=== PATIENT | male | born 1960 | race Caucasian/White ===

== ENCOUNTER 2018-10-14 13:22 | Emergency (ER) | payer BC, SELFPAY ==
[2018-10-14 13:23] VITALS: BP 125/71; PULSE 58; RESP 18; TEMP 36.5; O2SAT 97; BMI 31.0
--- NOTE | 2018-10-14 15:04 | ED.VISSUMM ---
- ER Visit Summary Date of Service: 10/14/18 Chief Complaint: Testicular pain History of Present Illness: The patient is a 58 M with left-sided testicular pain for 3 days. The patient was at an outside emergency department yesterday. Ultrasound was done and showed low flow. There was concern for torsion/detorsion. Urology was contacted. They did not believe this was torsion and they recommended outpatient follow-up. Patient has had continued pain. He called [facility] today for a second opinion and was referred to the emergency department. Physical Examination: Vital signs unremarkable. inspection normal. There is some tenderness to his left epididymis. Normal lie. Otherwise exam unremarkable. Test Results: None performed Emergency Department Course and Treatment: I reviewed the patient's outside facility ultrasound and urinalysis. I spoke with Dr. Wilks. Clinically, this does not appear to be torsion. He examined the patient. He was concerned for epididymitis. Patient was started on Cipro. He has a prescription for pain medicine. He will follow-up as an outpatient. Treatment Plan: As above Disposition: Discharge Impression: 1. Left testicle pain This note was generated with [employer] dictation software. It may contain incorrect words, spelling, and punctuation that were not noted in review of the chart prior to signing ED Disposition - Plan for ED Patient: Referrals: Alf Winters MD [Primary Care Provider] -
--- NOTE | 2018-10-14 15:06 | ED.DEP ---
ED Disposition - Plan for ED Patient: Instructions: ED Epididymitis Prescriptions: Ciprofloxacin [Cipro] 500 mg PO BID 10 Days #20 tab Referrals: Jose Wilks MD [STAFF PHYSICIAN] -
[2018-10-14] MEDS: Ciprofloxacin 500 MG Tablet PO (15:18)
[2018-10-14] MEDS: HYDROcodone Bitartrate/Apap 5/325 Tablet PO (15:18)
== END 2018-10-14 15:36 | disposition home or self-care (01) ==
PROVIDERS: Emergency Provider Emergency Medicine
DX: N50.812 Left testicular pain (principal); Z72.0 Tobacco use
CPT/HCPCS: 99283

== ENCOUNTER 2021-04-08 11:32 | Emergency (ER) | payer MEDICAID, SELFPAY ==
[2021-04-08 11:33] VITALS: BP 107/76; PULSE 59; RESP 18; TEMP 36.4; O2SAT 96; BMI 34.4
[2021-04-08 11:34] VITALS: BP 107/76; PULSE 59; RESP 18; TEMP 36.4; O2SAT 96
[2021-04-08 12:43] VITALS: O2SAT 97
--- NOTE | 2021-04-08 12:52 | EDS_ITS ---
HPI History of Present Illness Chief Complaint: Shortness of Breath Narrative Narrative: Patient presents with dyspnea for 2 days, no fevers or chills he does have a history of bronchitis. He tells me he was at [facility] in the past and has had some sort of bronchial stent in the past. He does not know his actual diagnosis. He is denying fevers or chills. No cough or congestion. He has a cough with clear sputum. He has no chest pain. No neck pain or stiffness. PFSH PFSH Home Medications albuterol sulfate 2.5 mg INHALATION Q20M #30 ea 04/08/21 [Rx Last Taken Unknown] azithromycin See Rx Instructions .ROUTE .COMPLEX #4 tab 04/08/21 [Rx Last Taken Unknown] prednisone 50 mg PO DAILY #4 tab 04/08/21 [Rx Last Taken Unknown] Allergy/AdvReac Type Severity Reaction Status Date / Time pregabalin [From Lyrica] Allergy Shortness Verified 04/08/21 11:34 of breath morphine AdvReac Nausea Verified 04/08/21 11:34 Surgical History (Updated 04/08/21 @ 12:43 by Pamela Moreira) Stented coronary artery Social History Smoking Status: Current every day smoker tobacco type: cigarettes ROS ROS ED ROS Narrative Past medical history: Reviewed Medications: Reviewed Social history: Noncontributory Vaccination: He is not vaccinated for Covid. Review of systems: All systems negative except as indicated General: No fever Eyes: No visual changes ENT: No upper airway congestion, normal voice Neck: No neck pain Cardiovascular: No chest pain Respiratory: Shortness of breath as in HPI Gastrointestinal: No abdominal pain, nausea vomiting or diarrhea Genitourinary: No dysuria Musculoskeletal: Denies myalgias no difficulty with ambulation Skin: No rash Neurological: No memory loss, confusion or any focal weakness Psych: No recent behavioral changes Hematologic: No easy bleeding or easy bruising EXAM Physical Exam Narrative Exam Narrative: Physical exam General: Well nourished, Well developed, No Acute Distress. He is quite comfortable in bed. Head: Normocephalic, Atraumatic Eyes: Conjunctiva not pale ENT: Moist mucous membranes Neck: Supple, Nontender, No lymphadenopathy Cardiovascular: Regular rate, Regular rhythm Respiratory: He is speaking full sentences, he has coarse bilateral breath sounds with bilateral wheezing. I ambulated him around the room and he did not desaturate. Abdomen: Soft, Nontender, Nondistended Back: Nontender, Normal Inspection. Negative for: CVA tenderness Extremities: Nontender, No edema Skin: Normal color, No rash Neurological: Alert, Normal Strength, Normal Sensation Psychological: Normal affect Const Vital Signs: 04/08/21 11:33 04/08/21 11:34 04/08/21 12:43 Temperature 97.6 F L 97.6 F L Temperature Source Temporal Temporal Pulse Rate 59 L 59 L Respiratory Rate 18 18 Respiratory Effort Short of Breath Respiratory Depth Normal Respiratory Pattern Normal Blood Pressure 107/76 107/76 Blood Pressure Mean 86 86 Pulse Ox 96 96 Oxygen Delivery Method Room Air Room Air Room Air 04/08/21 13:37 04/08/21 13:47 Temperature Temperature Source Pulse Rate 69 Respiratory Rate 16 Respiratory Effort Respiratory Depth Respiratory Pattern Blood Pressure Blood Pressure Mean Pulse Ox 95 Oxygen Delivery Method Room Air MDM MDM MDM Narrative Medical decision making narrative: Patient significantly improved after a nebulizer. His work-up is negative. I will discharge him with steroids antibiotics and nebulizer solution for his nebulizing machine. I strongly encouraged him to quit smoking Lab Data Labs: Laboratory Results - last 24 hr 04/08/21 04/08/21 12:36 12:36 WBC 7.1 RBC 4.40 L Hgb 13.9 Hct 42.5 MCV 96.6 H MCH 31.6 MCHC 32.7 RDW Std Deviation 49.7 H RDW Coeff of Janette 14.0 Plt Count 298 MPV 9.9 Immature Gran % (Auto) 0.300 Neut % (Auto) 64.9 Lymph % (Auto) 24.3 [place] % (Auto) 8.7 Eos % (Auto) 1.5 Baso % (Auto) 0.3 Absolute Neuts (auto) 4.6 Absolute Lymphs (auto) 1.73 Nucleated RBC % 0 Sodium 139 Potassium 4.0 Chloride 107 Carbon Dioxide 28.0 Anion Gap 4 L BUN 11 Creatinine 1.04 Estim Creat Clear Calc 76.48 Est GFR (MDRD) Af Amer 94 Est GFR (MDRD) Non-Af 77 BUN/Creatinine Ratio 10.6 Glucose 93 Calcium 8.9 Total Bilirubin 0.40 AST 16 ALT 28 Alkaline Phosphatase 96 Troponin I High Sens 7 Total Protein 7.9 Albumin 3.4 Globulin 4.5 H Albumin/Globulin Ratio 0.8 L Radiography Diagnostic Testing: Radiology Impression Chest X-Ray 04/08/21 12:57 IMPRESSION: Findings suggestive of a mild scarring at the lung bases slightly worse on the right side. Electronically Signed: Kvng Barcenas MD at 13:24 EDT , Service support , Chest x-ray interpreted by me and the radiologist does not show any pneumonia Discharge Plan Triage Chief Complaint: Shortness of Breath ED Provider: Shan Wells Dx/Rx/DC Orders Clinical Impression: Bronchitis Instructions: ED Bronchitis with Wheezing (Adult) Prescriptions: New albuterol sulfate 2.5 mg/0.5 mL solution for nebulization 2.5 mg inhalation Q20M Qty: 30 RF: 0 prednisone 50 mg tablet 50 mg PO DAILY Qty: 4 RF: 0 azithromycin 250 mg tablet See Rx Instructions .ROUTE .COMPLEX Qty: 4 RF: 0 Primary Care Provider: Mya Guevara Referrals: Mya Guevara, [Primary Care Provider] - Disposition Disposition: Home, Self Care
--- NOTE | 2021-04-08 12:52 | EKG12_ITS ---
Test Reason : SOB Blood Pressure : / mmHG Vent. Rate : 047 BPM Atrial Rate : 047 BPM P-R Int : 164 ms QRS Dur : 104 ms QT Int : 486 ms P-R-T Axes : 071 068 062 degrees QTc Int : 430 ms Sinus bradycardia Otherwise normal ECG Confirmed by ESMER HOLLAND, KIMANI ([id number]), technical editor MAVIS SANTIAGO ([id number]) on 04/11/2021 10:17:59 AM Referred By: AXEL Confirmed By:KIMANI LYMAN MD
--- NOTE | 2021-04-08 12:57 | RAD_ITS ---
STUDY: X-RAY CHEST REASON FOR EXAM: Male, 60 years old. Sob TECHNIQUE: PA and lateral views of the chest. COMPARISON: Comparison is made with prior study dated 06/25/2015. FINDINGS: Scattered calcified granulomas. Stable mild increased interstitial markings at the lung bases slightly worse on the right side suggestive of scarring. There is no demonstrated pleural abnormality. Normal size heart. Normal mediastinum and freddie. A vascular stent is seen overlying the left pulmonary artery. Normal visualized aortic arch and descending thoracic aorta. There are degenerative changes of the visualized thoracic spine. Normal visualized ribs, clavicles, and shoulders. There is no demonstrated abnormality of the visualized soft tissue structures of the upper abdomen. RAD/Chest PA and Lateral IMPRESSION: Findings suggestive of a mild scarring at the lung bases slightly worse on the right side. Electronically Signed: Kvng Barcenas MD at 13:24 EDT , Service support ,
[2021-04-08 13:09] LABS: Absolute Lymphocyte Count 1.73 X10^3/uL (0.83-4.51); Absolute Neutrophil Count 4.6 X10^3/uL (2.0-7.7); Basophil# 0.02 X10^3/uL; Basophil% 0.3 % (0-1); Eosinophil# 0.11 X10^3/uL; Eosinophils% 1.5 % (0-5); Hematocrit 42.5 % (40-54); Hemoglobin 13.9 g/dL (13.0-16.5); Lymphocyte # 1.73 X10^3/ul (0.83-4.51); Lymphocyte % 24.3 % (19-41); Mean Corp Hgb Conc 32.7 g/dL (32-36); Mean Corpuscular Hgb 31.6 pg (27.0-32.0); Mean Corpuscular Volume 96.6 fL (80-94); Mean Platelet Vol. 9.9 fl (6.2-12.0); Monocyte# 0.62 X10^3/uL; Monocyte% 8.7 % (0-10); NRBC Flagged by Analyzer 0 % (0-5); Neutrophil # 4.63 X10^3/uL (2.7-7.7); Neutrophil % 64.9 % (47-70); Platelet Count 298 K/mm3 (150-450); RBC Distribution Width SD 49.7 fl (35.1-43.9); White Blood Count 7.1 K/mm3 (4.4-11.0)
[2021-04-08] MEDS: Ipratropium/Albuterol Sulfate 3 ML AMPUL.NEB INHALATION (13:15)
[2021-04-08 13:20] LABS: ALB/GLOB Ratio 0.8 RATIO (0.9-2.4); AST(SGOT) 16 U/L (15-37); Alanine Aminotransfer ALT/SGPT 28 U/L (16-61); Albumin, Serum 3.4 g/dL (3.2-5.0); Alkaline Phosphatase 96 U/L (45-117); Anion Gap 4 (5-15); BUN 11 mg/dL (7-18); BUN/Creat Ratio 10.6 RATIO (10-20); Calcium,Total 8.9 mg/dL (8.5-10.1); Chloride 107 mmol/L (98-107); Creatinine, Serum 1.04 mg/dL (0.70-1.30); EST Glomerular Filtration Rate 77 mL/min (>60); Est Glom Filt Rate - Afr Amer 94 mL/min (>60); Estimated Creatinine Clearance 76.48 ml/min; Globulin 4.5 g/dL (2.2-4.2); Glucose 93 mg/dL (74-106); Protein, Total 7.9 g/dL (6.4-8.2); Sodium Level 139 mmol/L (136-145); Troponin-I HS 7 pg/mL (3.0-78.0)
[2021-04-08 13:37] VITALS: PULSE 69; RESP 16
[2021-04-08 13:47] VITALS: O2SAT 95
[2021-04-08] MEDS: Azithromycin 250 MG Tablet 500 MG PO (14:53)
[2021-04-08] MEDS: predniSONE 20 MG Tablet 60 MG PO (14:53)
[2021-04-08 14:56] VITALS: BP 120/78; PULSE 71; RESP 18; O2SAT 98
== END 2021-04-08 14:56 | disposition home or self-care (01) ==
PROVIDERS: Emergency Provider Emergency Medicine; PCP Internal Medicine
DX: J40 Bronchitis, not specified as acute or chronic (principal); F17.210 Nicotine dependence, cigarettes, uncomplicated; Z28.9 Immunization not carried out for unspecified reason
CPT/HCPCS: 71046; 80053; 84484; 85025; 87426; 93005; 94640; 99285; A4216

== ENCOUNTER 2025-04-07 06:13 | Emergency (ER) | payer MEDICARE, SELFPAY ==
[2025-04-07 06:14] VITALS: BP 185/87; PULSE 86; RESP 18; TEMP 36.5; O2SAT 99; BMI 39.2
--- NOTE | 2025-04-07 06:20 | EKG12_ITS ---
Test Reason : CP Blood Pressure : */* mmHG Vent. Rate : 82 BPM Atrial Rate : 82 BPM P-R Int : 162 ms QRS Dur : 108 ms QT Int : 384 ms P-R-T Axes : 69 60 73 degrees QTcB Int : 448 ms Normal sinus rhythm Nonspecific ST abnormality Abnormal ECG Confirmed by PATO HOLLAND, LAMIN ([id number]), news copy editor MARILEE BERNSTEIN ([id number]) on 04/10/2025 7:30:59 AM Referred By: YOBANY Confirmed By: LAMIN WHYET MD
--- NOTE | 2025-04-07 06:36 | CT_ITS ---
PROCEDURE: BRAIN/HEAD WITHOUT CONTRAST 04/07/2025 REASON FOR EXAM: PARESTHESIAS TECHNIQUE: BRAIN/HEAD WITHOUT CONTRAST Coronal and Sagittal reconstruction series were provided. One or more dose reduction techniques were used (e.g., Automated exposure control, adjustment of the mA and/or kV according to patient size, use of iterative reconstruction technique. RADIATION DOSE SUMMARY: CTDlvol: 45 mGy DLP: 812 mGycm COMPARISON: None FINDINGS: Brain: There is no evidence of hemorrhage, acute ischemia or mass. No extra- axial fluid collection, midline shift or mass effect. CSF Spaces: Normal Sinuses/Mastoids: Clear Bones: No fracture CT/Brain/Head without Contrast IMPRESSION: No acute intracranial abnormality. Reading Location: [id number]
--- NOTE | 2025-04-07 06:48 | RAD_ITS ---
PROCEDURE: CHEST PA AND LATERAL 04/07/2025 REASON FOR EXAM: CHEST PAIN TECHNIQUE: CHEST PA AND LATERAL COMPARISON: April 08, 2021 FINDINGS: Hardware: EKG leads are seen. Left bronchial stent. Heart: Mild cardiac enlargement. Mediastinum: No mass. Lungs: Scattered calcified granulomas bilaterally. No consolidation or mass. Bones: Degenerative changes are identified within the thoracic spine. RAD/Chest PA and Lateral IMPRESSION: Mild cardiac enlargement. Benign granulomas bilaterally. Reading Location: [id number]
--- NOTE | 2025-04-07 06:48 | EDS_ITS ---
HPI History of Present Illness Chief Complaint: Chest Pain Informant: patient Narrative Narrative: Patient is a 64-year-old male with past medical history of hypertension and fibrosing mediastinitis. He states he has been having chest pain for approximately 1 month. He states he followed up with his registered nurse nursery who reportedly performed a 2-week Holter monitor study which according to the patient showed trigeminy and bigeminy. He states this was followed up by CT scan of the chest which revealed no acute finding. Patient states that his chest discomfort has been persistent but his main reason for coming in today was because he developed a sensation of numbness and tingling along the forehead. He states that the paresthesia sensation lasted for a few hours and he was concerned about having a stroke and therefore comes in for evaluation. [facility] Medical History HTN (hypertension) Fibrosing mediastinitis Home Medications ?Medication ?Instructions ?Recorded ?Last Taken ?Type albuterol sulfate 2.5 mg/0.5 mL 2.5 mg (0.5 mL) inhala tion Q20M 04/08/21 Unknown Rx solution for nebulization #30 ea albuterol sulfate 90 mcg/actuation 2 puff inhalation Q 4H PRN PRN 04/07/25 Unknown History aerosol inhaler wheezing apixaban 5 mg tablet (Eliquis) 5 mg PO BID 04/07/25 Un known History atorvastatin 40 mg tablet 40 mg PO DAILY 04/07/25 Unkn own History fluticasone fur. 100 mcg-umeclid 1 inh inhalation DOUG Y 04/07/25 Unknown History 62.5 mcg-vilant 25 mcg inhalat.powder (Trelegy Ellipta) peg 3350-electrolytes 236 ml PO UD 04/07/25 Unknown Hi story gram-22.74 gram-6.74 gram-5.86 gram solution (GaviLyte-G) Allergy/AdvReac Type Severity Reaction Status Date / Time pregabalin (From Lyrica) Allergy Shortness Verified 04/07/25 06:13 of breath morphine AdvReac Nausea Verified 04/07/25 06:13 Surgical History (Updated 04/07/25 @ 06:15 by Jeremie Goddard) Hx of cholecystectomy Stented coronary artery Social History (Reviewed 04/07/25 @ 06:15 by Jeremie Miles Smoking Status: Former smoker ROS ROS ED Constitutional Constitutional ED: Denies chills or fever(s) Eyes Eyes: Denies blurry vision or change in vision ENT ENT ED: Denies sore throat Cardiovascular Cardiovascular: Reports chest pain; Denies palpitations or racing heartbeat Respiratory/Chest Respiratory/Chest: Reports cough; Denies dyspnea Gastrointestinal Gastrointestinal: Denies abdominal pain, diarrhea, nausea or vomiting Musculoskeletal Musculoskeletal: Denies myalgias Integumentary Denies rash Neurologic Neurologic: Reports paresthesias; Denies headache(s) Hematologic/Lymphatic Hematologic/Lymphatic: Reports easy bleeding and easy bruising EXAM Physical Exam Const Vital Signs: 04/07/25 06:14 04/07/25 06:14 04/07/25 07:21 Temperature 97.7 F L Temperature Source Oral Pulse Rate 86 63 Respiratory Rate 18 16 Respiratory Effort Normal Blood Pressure 185/87 H 170/83 H Blood Pressure Mean 119 112 Pulse Ox 99 98 Oxygen Delivery Method Room Air Room Air Positive well nourished, well developed and obese General Appearance ED: well developed; Negative for pallor Nutritional Appearance: obese HEENT HEENT Narrative: Normocephalic atraumatic No tongue or lip swelling no oral lesions no airway edema or compromise; no secondary findings in the posterior pharynx to suggest infection Eyes PERRL and EOMs intact bilaterally General Eye ED: Negative for scleral icterus Neck supple Neck Narrative: No nuchal rigidity or meningeal signs noted Chest Wall palpation of chest normal Chest Narrative: No bony deformity or subcutaneous emphysema noted Resp normal respiratory effort Resp Narrative: Breath sounds are diminished throughout with faint expiratory wheeze and rhonchi in bilateral bases consistent with history of COPD No signs of respiratory distress Cardio regular rate and regular rhythm Rate: other Other Details: Heart is regular rate and rhythm Radial and carotid pulses are equal and symmetric No carotid bruit noted GI normal to inspection, nondistended, normoactive bowel sounds, non-tender, non- distended and no masses GI Narrative: Soft nontender nondistended with normoactive bowel sounds. No voluntary guarding or rigidity or pulsatile mass Auscultation: normoactive bowel sounds Palpation: soft Extremity normal to inspection Extremity Narrative: No asymmetric edema no pitting edema negative Homans' sign bilaterally Neuro oriented x3, CN's II-XII intact bilaterally and no sensory deficits noted Neuro Narrative: GCS of 15 Cranial nerves II through XII are grossly intact without focal neurologic deficit No pronator drift no dysmetria no truncal ataxia Patient reports sensation of paresthesia but there is none documented on today's exam as he reports touch to both the left and right side of the face is equal NIH stroke scale score of 0 Sensorium / Orientation: alert Motor Exam: strength 5/5 throughout Psych Mood & Affect: depressed Skin no rashes or lesions noted General Skin Exam: Negative for jaundice or pallor MDM MDM MDM Narrative Medical decision making narrative: Patient arrived to the ER hypertensive but otherwise with stable vitals. He reported chest discomfort for over 1 month and has been evaluated by his registered nurse nursery with a 14-day Holter monitor study as well as CT scan of his chest roughly 1 month ago. 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 The patient reported his main concern was for a potential stroke secondary to his reported paresthesias. Chart review reveals he is on Eliquis 5 mg twice a day. His stroke scale score in the ER is 0 and therefore there is no need to activate a stroke alert or perform a CTA. However in order to ensure there is no spontaneous subarachnoid or subdural hemorrhage causing his symptoms I did perform a CT of the brain. This revealed no acute finding. At this time I have low concern for acute coronary syndrome as the patient is EKG does not reveal ischemic changes and is discomfort has been present for approximately 1 month. However in order to ensure that ACS is not the cause of his persistent chest discomfort initial and delta troponin will be obtained. Electrolytes will be looked at as well secondary to his reported paresthesia. I feel that at this time as neurologic exam is normal and EKG does not show acute ischemic changes that if the lab work does not reveal any acute findings he is otherwise safe for discharge and can follow-up as an outpatient. As laboratory studies are still pending he will be signed out to day physician Dr. Perez History & Record Review Discussion w/independent historian: Patient Lab Data Attestation: I reviewed the patient's lab results. Labs: Laboratory Results - last 24 hr 04/07/25 06:20 WBC 7.6 RBC 4.48 L Hgb 14.1 Hct 41.4 MCV 92.4 MCH 31.5 MCHC 34.1 RDW Std Deviation 46.0 H RDW Coeff of Janette 13.5 Plt Count 294 MPV 9.4 Immature Gran % (Auto) 0.400 Neut % (Auto) 55.5 Lymph % (Auto) 32.6 [place] % (Auto) 8.1 Eos % (Auto) 2.9 Baso % (Auto) 0.5 Absolute Neuts (auto) 4.2 Absolute Lymphs (auto) 2.49 Nucleated RBC % 0 Radiography Diagnostic Testing: Clinical Impression(s) from Imaging Studies Brain CT 04/07/25 06:36 IMPRESSION: No acute intracranial abnormality. Reading Location: [facility] Chest X-Ray 04/07/25 06:48 IMPRESSION: Mild cardiac enlargement. Benign granulomas bilaterally. Reading Location: [facility] 2 view chest x-ray as interpreted by the emergency medicine physician reveals mild cardiomegaly without acute infiltrate pneumothorax pleural effusion or widened mediastinum Discharge Plan Triage Chief Complaint: Chest Pain ED Provider: Pantera Spencer Dx/Rx/DC Orders Clinical Impression: Nonspecific chest pain, Paresthesia, Fibrosing mediastinitis, Current use of longterm anticoagulation Instructions: ED Chest Pain, Uncertain Cause, ED Paresthesia Prescriptions: No Action albuterol sulfate 2.5 mg/0.5 mL solution for nebulization 2.5 mg inhalation Q20M Qty: 30 0RF Rx Instructions: for up to 3 doses atorvastatin 40 mg tablet 40 mg PO DAILY albuterol sulfate 90 mcg/actuation HFA aerosol inhaler 2 puff inhalation Q4H PRN PRN (Reason: wheezing) peg 3350-electrolytes [GaviLyte-G] 236-22.74-6.74 -5.86 gram recon soln PO UD Eliquis 5 mg tablet 5 mg PO BID Trelegy Ellipta 100-62.5-25 mcg blister with device 1 inh inhalation DAILY Primary Care Provider: Aaron Del Rosario Referrals: Mya Guevara, DO [Non-Staff] - Activity Restrictions/Additional Instructions: Your workup did not reveal any signs of active heart damage. Your physical exam and head CT do not reveal any signs of acute stroke. Please follow-up with your family doctor for repeat evaluation and continue all of your home medications as directed by your physician. Return to the ER should you have any further concerns Print Language: Slovenian Disposition Disposition: Home, Self Care
[2025-04-07 06:56] LABS: Hematocrit 41.4 % (40-54); Hemoglobin 14.1 g/dL (13.0-16.5); Immature Granulocytes Count 0.030 X10^3/uL (0.0-0.0); Mean Corp Hgb Conc 34.1 g/dL (32-36); Mean Corpuscular Volume 92.4 fL (80-94); Mean Platelet Vol. 9.4 fl (6.2-12.0); NRBC Flagged by Analyzer 0 % (0-5); Platelet Count 294 K/mm3 (150-450); RBC Distribution Width CV 13.5 % (11.6-14.6); RBC Distribution Width SD 46.0 fl (35.1-43.9); Red Blood Count 4.48 M/mm3 (4.6-6.2); White Blood Count 7.6 K/mm3 (4.4-11.0)
[2025-04-07 07:21] VITALS: BP 170/83; PULSE 63; RESP 16; O2SAT 98
[2025-04-07 07:33] LABS: Anion Gap 13 (5-15); BUN 12 mg/dL (4-19); BUN/Creat Ratio 12.0 RATIO (10-20); Calcium,Total 9.1 mg/dL (7.6-11.0); Carbon Dioxide 25.6 mmol/L (21.0-32.0); Chloride 102 mmol/L (98-108); Estimated Creatinine Clearance 97.94 ml/min (50-250); Glucose 147 mg/dL (70-99); Potassium 4.0 mmol/L (3.3-5.1); Troponin T High Sensitivity 8 ng/L (<=22)
[2025-04-07 07:44] LABS: Magnesium 2.3 mg/dL (1.5-2.2)
[2025-04-07 08:28] VITALS: BP 144/78
[2025-04-07 09:37] LABS: Troponin T High Sens 2 HR 9 ng/L (<=22)
[2025-04-07 10:43] VITALS: BP 147/72; BP 147/76; PULSE 65; RESP 16; TEMP 36.7; O2SAT 97
== END 2025-04-07 10:45 | disposition home or self-care (01) ==
PROVIDERS: Emergency Provider Emergency Medicine; PCP Hospitalist; Visit Provider Emergency Medicine
DX: R07.9 Chest pain, unspecified (principal); R20.2 Paresthesia of skin; Z87.891 Personal history of nicotine dependence; Z79.01 Long term (current) use of anticoagulants; I10 Essential (primary) hypertension; R00.8 Other abnormalities of heart beat; J98.51 Mediastinitis; Z79.899 Other long term (current) drug therapy; E66.9 Obesity, unspecified
CPT/HCPCS: 70450; 71046; 80048; 83735; 84484; 85025; 93005; 96374; 99283; A4216